=== PATIENT | male | born 1985 | race Caucasian/White ===

== ENCOUNTER 2017-12-23 18:16 | Emergency (ER) | payer SELFPAY ==
[~2017-12-23] VITALS: Ht 182.9 cm; Wt 89.0 kg
[2017-12-23 18:21] VITALS: BP 127/89; PULSE 83; RESP 16; TEMP 99.2; O2SAT 98
--- NOTE | 2017-12-23 19:15 | PD ---
HPI Chief Complaint: Injury Time Seen by Provider: 18:32 Travel History International Travel<30 days: No Contact w/Intl Traveler<30days: No Traveled to known affect area: No History of Present Illness HPI 32-year-old male presents emergency department for evaluation of right lateral lower extremity pain after jumping out of a swing, landing on his feet. Patient states that as soon as he landed he felt as if a bone popped out of place in his right lower extremity, proximal aspect of the fibula.. Patient states that when he walks now he has significant pain described as sharp and says of bone feels like his bone is going to popped out. Currently says that he is unable to walk because of the pain. He denies any pain to his feet, ankles or knee. He denies any numbness or tingling of the leg. Denies weakness. Denies chronic medical issues medication use. PFSH Past Medical History Medical History: Denies Significant Hx Diminished Hearing: No Tetanus Vaccination: < 5 Years Past Surgical History Appendectomy: Yes Social History Alcohol Use: No Tobacco Use: No Substance Use: No Allergies-Medications (Allergen,Severity, Reaction): Coded Allergies: No Known Allergies (Unverified , 12/23/17) Reported Meds & Prescriptions Reported Meds & Active Scripts Active No Active Prescriptions or Reported Medications Review of Systems Except as stated in HPI: all other systems reviewed are Neg Physical Exam Narrative GENERAL: Well-nourished, well-developed patient. SKIN: Focused skin assessment warm/dry. HEAD: Normocephalic. EYES: No scleral icterus. No injection or drainage. NECK: Supple, trachea midline. No JVD or lymphadenopathy. CARDIOVASCULAR: Regular rate and rhythm without murmurs, gallops, or rubs. RESPIRATORY: Breath sounds equal bilaterally. No accessory muscle use. MUSCULOSKELETAL: No cyanosis, or edema. Right lower extremity-tenderness palpation along the mid lateral calf, reproducing his pain in the proximal fibula. No bulging or masses present. No edema. Skin intact. Neurovascular intact. Knee, ankle and foot within normal limits. No tenderness palpation. BACK: Nontender without obvious deformity. No CVA tenderness. Data Data Last Documented VS Vital Signs Date Time Temp Pulse Resp B/P (MAP) Pulse Ox O2 Delivery O2 Flow Rate FiO2 12/23/17 18:21 99.2 83 16 127/89 (102) 98 Orders Orders Tibia/Fibula (Ap/Lat) (12/23/17 ) Mandatory Outpatient Referral (12/23/17 19:44) [facility] Medical Decision Making Medical Screen Exam Complete: Yes Emergency Medical Condition: Yes Differential Diagnosis Right leg fracture, right leg sprain, right leg contusion Narrative Course 31-year-old male presents emergency part for evaluation of right lower extremity pain after jumping off a swing. Patient states that he landed on his feet and felt a pop in the proximal aspect of his lower extremity lateral pavon and states he has been able to walk on the leg since then. Vital signs are stable. Last Impressions Tibia/Fibula X-Ray 12/23/17 0000 Signed Impressions: Service Date/Time: Saturday, December 23, 2017 19:05 - CONCLUSION: Intact right leg. Presumably nonacute small radiopaque foreign body as above. Real Rojo MD I discussed the finding of the x-ray with the patient. I showed her the x-rays and showed him the possible foreign body as stated in the x-ray. Patient is unaware of this finding previously. Mandatory referral placed. I am concerned that there may been some ligamental disruption, causing his pain. Patient will receive knee immobilizer and crutches. Weightbearing as tolerated however, reduce the amount of weight pleased to reduce repetitive injury. I strongly advised patient to follow-up with orthopedic physician as soon as possible. Follow-up primary care physician. Tylenol or Motrin per package instructions for his pain. Patient and family state understanding will comply. Diagnosis Primary Impression: Leg pain Qualified Codes: M79.604 - Pain in right leg Referrals: Martín Tucker MD, Todd Andrew MD Orthopedist Primary Care Physician Departure Forms: Tests/Procedures, Work Release Enter return to work date: Dec 26, 2017 Additional Instructions: Use ice or heat for symptom relief. If no contraindications, you may use Tylenol or Motrin per package instructions for your pain. Elevate the joint above the heart to reduce swelling. You may use compression with Joel wrap or similar to reduce swelling. If symptoms persist or worsen, return to the emergency department. Follow up with your primary care physician within 2 days. Follow-up with an waste management specialist soon as possible. Scripts No Active Prescriptions or Reported Meds Disposition: 01 DISCHARGE HOME Condition: Stable Cami Werner Dec 23, 2017 19:15
--- NOTE | 2017-12-23 19:30 | RADRPT ---
EXAM DATE/TIME: 12/23/2017 19:05 [facility] COMPARISON: No previous studies available for comparison. INDICATIONS : Right lower leg pain from jumping off of a swing set. MEDICAL HISTORY : None. SURGICAL HISTORY : None. ENCOUNTER: Initial ACUITY: 1 day PAIN SCORE: 8/10 LOCATION: Right tibia/fibula. FINDINGS: Two view examination of the right tibia demonstrates no evidence of fracture or dislocation. Bony mi neralization is normal. The soft tissue structures are intact. There is an approximately 3 mm radiopaque structure posterolaterally of the proximal right leg. CONCLUSION: Intact right leg. Presumably nonacute small radiopaque foreign body as above. Real Rojo MD on December 23, 2017 at 19:26 Board Certified Radiologist. This report was verified electronically.
== END 2017-12-23 20:12 | disposition home or self-care (01) ==
LOC: PHEFT 18:16
DX: M79.604 Pain in right leg (principal)
CPT/HCPCS: 73590; 99283; E0113; L1830